=== PATIENT | male | born 1955 | race Caucasian/White ===

== ENCOUNTER 2020-09-16 23:19 | Inpatient (IN) | payer MEDICARE, OTHER ==
[2020-09-16] MEDS ORDERED: ACETAMINOPHEN IV (For NPO) 1,000 MG in EMPTY BAG 1 BAG IVPB STA (23:30)
[2020-09-16] MEDS ORDERED: AMPICILLIN-SULBACTAM 3 GM in SODIUM CHLORIDE 0.9% 100 ML IVPB STA (23:34)
[2020-09-16] MEDS ORDERED: SODIUM CHLORIDE 0.9% 1,000 ML IV STA ×2 (23:34)
[2020-09-16] MEDS ORDERED: NALOXONE 0.4 MG/ML 1 ML VIAL IV PRN (23:35)
[2020-09-16] MEDS ORDERED: MORPHINE SULFATE 4 MG/ML SYRINGE IV PRN (23:35)
[2020-09-16] MEDS ORDERED: ONDANSETRON 4 MG/2 ML VIAL IVP PRN (23:35)
--- NOTE | 2020-09-16 23:37 | ED ---
Recheck HPI - General Chief Complaint: Abdominal Pain Stated Complaint: Abd Pain Time Seen by Provider: 09/16/20 23:33 Source: EMS Mode of arrival: EMS Limitations: no limitations - Related Data Allergies Allergy/AdvReac Type Severity Reaction Status Date / Time No Known Allergies Allergy Verified 09/16/20 23:26 Review of Systems ROS Statement: Those systems with pertinent positive or pertinent negative responses have been documented in the HPI. ROS Other: All systems not noted in ROS Statement are negative. Past Medical History Past Medical History: Hypertension History of Any Multi-Drug Resistant Organisms: None Reported Past Surgical History: Joint Replacement, Prostate Surgery Past Psychological History: No Psychological Hx Reported Smoking Status: Never smoker Past Alcohol Use History: Occasional Past Drug Use History: None Reported General Exam Limitations: no limitations Course Vital Signs 09/16/20 23:23 Temperature 103 F H Pulse Rate 104 H Respiratory 20 Rate Blood Pressure 133/78 O2 Sat by Pulse 93 L Oximetry Disposition Clinical Impression: Abdominal pain, Acute appendicitis Disposition: ADMITTED IP TO THIS HOSP Condition: Fair Is patient prescribed a controlled substance at d/c from ED?: No Referrals: Nonstaff,Physician [Primary Care Provider] - 1-2 days
[2020-09-16] MEDS ORDERED: IBUPROFEN IV 800 MG in SODIUM CHLORIDE 0.9% 250 ML IV ONE (23:45)
[2020-09-17] MEDS ORDERED: AMPICILLIN-SULBACTAM 3 GM in SODIUM CHLORIDE 0.9% 100 ML IVPB SCH ×2
[2020-09-17] MEDS ORDERED: ACETAMINOPHEN IV (For NPO) 1,000 MG in EMPTY BAG 1 BAG IVPB SCH
[2020-09-17] MEDS: ACETAMINOPHEN IV (For NPO) 1,000 MG in EMPTY BAG 1 BAG IVPB SCH ×3 (06:36→23:52)
--- NOTE | 2020-09-17 07:28 | XR ---
EXAMINATION TYPE: XR chest 2V DATE OF EXAM: 09/17/2020 COMPARISON: NONE HISTORY: Shortness of breath TECHNIQUE: Frontal and lateral views of the chest are obtained. FINDINGS: Scattered senescent parenchymal changes noted. Hyperinflation compatible with COPD. No evidence for infiltrate. No evidence for atelectasis. Heart size is stable. Mediastinal structures are stable and grossly unremarkable. No evidence for hilar prominence. Degenerative changes dorsal spine. IMPRESSION: 1. No evidence for acute pulmonary disease.
[2020-09-17 08:21] LABS: Basophils % (A) 0 %; Eosinophils % (A) 0 %; HCT 39.8 % (39.0-53.0); HGB 14.7 gm/dL (13.0-17.5); Hyperchromasia Slight; Lymphocytes # (A) 0.7 k/uL (1.0-4.8); Lymphocytes % (A) 4 %; MCH 33.8 pg (25.0-35.0); MCV 91.3 fL (80.0-100.0); Mean Platelet Volume 7.4; Monocytes # (A) 0.9 k/uL (0-1.0); Monocytes % (A) 4 %; Neutrophils # (A) 18.8 k/uL (1.3-7.7); Neutrophils % (A) 91 %; Platelet Count 176 k/uL (150-450); RBC 4.36 m/uL (4.30-5.90); RDW 12.4 % (11.5-15.5); WBC 20.6 k/uL (3.8-10.6)
[2020-09-17] MEDS: PANTOPRAZOLE 40 MG/10 ML VIAL IV SCH (08:26)
[2020-09-17] MEDS: AMPICILLIN-SULBACTAM 3 GM in SODIUM CHLORIDE 0.9% 100 ML IVPB SCH ×2 (08:26→17:38)
--- NOTE | 2020-09-17 16:11 | P.GSHP ---
History of Present Illness H&P Date: 09/17/20 CHIEF COMPLAINT: Right lower quadrant abdominal pain HISTORY OF PRESENT ILLNESS: This is a 64-year-old male with a known history of hypertension and prostate surgery. Patient was a transfer from [facility]. Patient presented to the emergency room with complaints of right lower quadrant abdominal pain for the last 2 days. He also has been having nausea. Patient has had colonoscopy within the last 5 years. Denies any family history of colon cancer. He's been having normal stools with no blood present in the stools. Per patient he has had a recent stress test and was reported no rmal per patient. He denies any fever, chills or sweats. He had computed tomography scan findings of an acute appendicitis at outside facility. PAST MEDICAL HISTORY: See list. PAST SURGICAL HISTORY: See list. MEDICATIONS: See list. ALLERGIES: See list. SOCIAL HISTORY: No illicit drug use. REVIEW OF SYSTEMS: CONSTITUTIONAL: Denies fever or chills. HEENT: Denies blurred vision, vision changes, or eye pain. Denies hemoptysis ENDOCRINE: Denies heat or cold intolerance. CARDIOVASCULAR: Denies chest pain or pressure. RESPIRATORY: No shortness of breath. GASTROINTESTINAL: Denies abdominal pain. Denies nausea or vomiting. NEURO: Denies history of seizures. PSYCH: No depression or suicidal ideation HEMATOLOGIC: Denies bleeding disorders. LYMPHATIC: The patient denies any lumps and bumps around the neck. GENITOURINARY: Denies any blood in urine or increased urinary frequency. MUSCULOSKELETAL: Denies myalgias. Denies joint swelling. Denies decreased range of motion beyond patients baseline. SKIN: Denies pruitis. Denies rash. PHYSICAL EXAM: VITAL SIGNS: Reviewed GENERAL: Well-developed in no acute distress. HEENT: No sclera icterus. Extraocular movements grossly intact. Moist buccal mucosa. Head is atraumatic, normocephalic. Hears conversational speech. No nasal d rainage. NECK: Supple without lymphadenopathy. CHEST: Non-labored respirations and equal bilateral excursions. CARDIOVASCULAR: Regular rate with regular rhythm. Palpable 2+ radial pulses. ABDOMEN: Soft. Nondistended. Nontender MUSCULOSKELETAL: No clubbing or cyanosis. NEUROLOGIC: No focal or lateralizing signs. Cranial nerves II through XII grossly intact. PSYCH: Appropriate affect. Alert and oriented to person, place and time. SKIN: Well perfused. Good skin turgor. LABORATORY DATA: WBC 20.6 Hgb 14.7 platelets 176 IMAGING: ASSESSMENT: 1. Right lower quadrant abdominal pain 2. Acute appendicitis 3. Hypertension 4. History of prostate surgery PLAN: -Patient is scheduled for robotic appendectomy with Dr. Bonilla -Continue IV fluids -Continue IV antibiotics -Keep patient nothing by mouth Physician [employer] Supervisor note has been reviewed by physician. Signing provider agrees with the documented findings, assessment, and plan of care. Past Medical History Past Medical History: Hypertension History of Any Multi-Drug Resistant Organisms: None Reported Past Surgical History: Joint Replacement, Prostate Surgery Past Psychological History: No Psychological Hx Reported Smoking Status: Never smoker Past Alcohol Use History: Occasional Past Drug Use History: None Reported Medications and Allergies Home Medications Medication Instructions Recorded Confirmed Type Multivitamins, Thera [Multivitamin 1 tab PO DAILY 09/16/20 09/16/20 History (formulary)] hydroCHLOROthiazide 25 mg PO DAILY 09/16/20 09/16/20 History lisinopriL [Zestril] 20 mg PO DAILY 09/16/20 09/16/20 History Allergies Allergy/AdvReac Type Severity Reaction Status Date / Time No Known Allergies Allergy Verified 09/16/20 23:48 Surgical - Exam Vital Signs Temp Pulse Resp BP Pulse Ox 103 F H 104 H 20 133/78 93 L 09/16/20 23:23 09/16/20 23:23 09/16/20 23:23 09/16/20 23:23 09/16/20 23:23 Results - Labs 09/17/20 07:52 Abnormal Lab Results - Last 24 Hours (Table) 09/17/20 Range/Units 07:52 WBC 20.6 H (3.8-10.6) k/uL Neutrophils # 18.8 H (1.3-7.7) k/uL Lymphocytes # 0.7 L (1.0-4.8) k/uL
--- NOTE | 2020-09-17 16:53 | P.GSHP ---
History of Present Illness H&P Date: 09/17/20 CHIEF COMPLAINT: Right lower quadrant abdominal pain with appendicitis for 2 days. HISTORY OF PRESENT ILLNESS: The patient is a 64-year-old male transferred from outside facility [place] who presents with 2 day history of periumbilical with right lower quadrant abdominal pain that is crampy dull ache in nature. No reports of prior abdominal pain. He states the intensity of the pain is moderate. He presented with CT abdomen and pelvis consistent with dilated appendix suspicious for appendicitis hence general surgery admission. PAST MEDICAL HISTORY: See list and reviewed PAST SURGICAL HISTORY: See list and reviewed CURRENT MEDICATIONS: See list and reviewed ALLERGIES: See list and reviewed SOCIAL HISTORY: See list and reviewed FAMILY HISTORY: See list and reviewed REVIEW OF ORGAN SYSTEMS: CONSTITUTIONAL: No fever, no chills. Denies recent weight loss. HEENT: Denies any trouble with vision, hearing or nosebleeds. No difficulty swallowing. LYMPHATIC: The patient denies any lumps and bumps around the neck. ENDOCRINE: Denies any thyroid disorders. Denies any blood sugar glucose intolerance. RESPIRATORY: Denies shortness of breath including chronic cough. CARDIOVASCULAR: Has hypertensive heart disease. Previous stress test one year ago within normal limits. No palpitations. GASTROINTESTINAL: Denies regurgitation of bile at night as well as intermittent nausea. No blood in stools. GENITOURINARY: Denies any blood in urine or increased urinary frequency. MUSCULOSKELETAL: Denies current joint arthritis. NEUROLOGIC: Denies any numbness or tingling along the distal extremities. No seizure disorders or headaches. PSYCHIATRIC: Denies any depression or suicidal ideation. HEMATOLOGIC: Denies any abnormal bleeding or bruising. PHYSICAL EXAMINATION: GENERAL: A 64-year-old male in no acute distress. Pleasant. HEENT: No sclera icterus. Extraocular movements grossly intact. Moist buccal mucosa. Head is atraumatic, normocephalic. Hears conversational speech. No nasal drainage. NECK: Supple without lymphadenopathy. No JV distention. CHEST: Non-labored respirations and equal bilateral excursions. CARDIOVASCULAR: Regular rate and rhythm. Palpable 2+ radial pulses. ABDOMEN: Soft, tender at the right lower quadrant without guarding. MUSCULOSKELETAL: No clubbing, cyanosis or edema. NEUROLOGIC: No focal or lateralizing signs. PSYCH: Appropriate affect. Alert and oriented to person, place and time. SKIN: Well perfused. Good skin turgor. LABS: Reviewed. White blood cell count elevated over 20,000. STUDIES: CT of the abdomen and pelvis independently reviewed with findings consistent with appendicitis. ASSESSMENT: 1. Right lower quadrant pain with sepsis 2. Appendicitis 3. Leukocytosis. PLAN: 1. I have discussed benefits and risks of robotic appendectomy. 2. Bilateral SCDs. 3. Antibiotics intravenous to address moderate leukocytosis with underlying sepsis Thank you very much for allowing me to participate in the care of your patient. Past Medical History Past Medical History: Hypertension History of Any Multi-Drug Resistant Organisms: None Reported Past Surgical History: Joint Replacement, Prostate Surgery Past Psychological History: No Psychological Hx Reported Smoking Status: Never smoker Past Alcohol Use History: Occasional Past Drug Use History: None Reported Medications and Allergies Home Medications Medication Instructions Recorded Confirmed Type Multivitamins, Thera [Multivitamin 1 tab PO DAILY 09/16/20 09/16/20 History (formulary)] hydroCHLOROthiazide 25 mg PO DAILY 09/16/20 09/16/20 History lisinopriL [Zestril] 20 mg PO DAILY 09/16/20 09/16/20 History Allergies Allergy/AdvReac Type Severity Reaction Status Date / Time No Known Allergies Allergy Verified 09/16/20 23:48 Surgical - Exam Vital Signs Temp Pulse Resp BP Pulse Ox 103 F H 104 H 20 133/78 93 L 09/16/20 23:23 09/16/20 23:23 09/16/20 23:23 09/16/20 23:23 09/16/20 23:23 Results - Labs 09/17/20 07:52 Abnormal Lab Results - Last 24 Hours (Table) 09/17/20 Range/Units 07:52 WBC 20.6 H (3.8-10.6) k/uL Neutrophils # 18.8 H (1.3-7.7) k/uL Lymphocytes # 0.7 L (1.0-4.8) k/uL
[2020-09-17] MEDS ORDERED: MELOXICAM 7.5 MG TAB PO PRN (16:54)
[2020-09-17] MEDS ORDERED: TAMSULOSIN 0.4 MG CAP.ER.24H PO PRN (16:54)
[2020-09-17] MEDS ORDERED: HEPARIN SODIUM,PORCINE/PF 5,000 UNIT/0.5 ML SYRINGE SQ PRN (16:54)
[2020-09-17] MEDS ORDERED: ACETAMINOPHEN TAB 500 MG TAB PO PRN (16:54)
[2020-09-17] MEDS ORDERED: GABAPENTIN 300 MG CAP PO PRN (16:54)
[2020-09-17 17:39] LABS: ALT 17 U/L (4-49); AST 22 U/L (17-59); African American GFR (CKD) >90 (>60 ml/min/1.73 sqM); Albumin 3.4 g/dL (3.5-5.0); Alkaline Phosphatase 57 U/L (38-126); Anion Gap 8 mmol/L; Blood Urea Nitrogen 23 mg/dL (9-20); Calcium 8.6 mg/dL (8.4-10.2); Carbon Dioxide 21 mmol/L (22-30); Chloride 106 mmol/L (98-107); Globulin 3.3 g/dL; Glucose 140 mg/dL (74-99); Non-African American GFR(CKD) 78 (>60 ml/min/1.73 sqM); Potassium 3.9 mmol/L (3.5-5.1); Sodium 135 mmol/L (137-145); Total Bilirubin 1.8 mg/dL (0.2-1.3); Total Protein 6.7 g/dL (6.3-8.2)
[2020-09-17] MEDS ORDERED: IV FLUID CONTINUATION 1,000 ML IV ONE ×2 (17:47)
[2020-09-17] MEDS ORDERED: PROPOFOL 10 MG/ML 20 ML VIAL IV ONE (19:11)
[2020-09-17] MEDS ORDERED: fentaNYL (PF) 50 MCG/ML 2 ML AMP ONE (19:11)
[2020-09-17] MEDS ORDERED: ROCURONIUM 10 MG/ML (5 ML VIAL) IV ONE (19:11)
[2020-09-17] MEDS ORDERED: GLYCOPYRROLATE 0.2 MG/ML 2 ML VIAL ONE (19:11)
[2020-09-17] MEDS ORDERED: MIDAZOLAM 2 MG/2 ML VIAL ONE (19:11)
[2020-09-17] MEDS ORDERED: KETOROLAC 15 MG/ML 1 ML VIAL ONE (19:11)
[2020-09-17] MEDS ORDERED: SUCCINYLCHOLINE CHLORIDE 100 MG/5 ML SYR IV ONE (19:11)
[2020-09-17] MEDS ORDERED: KETAMINE 10 MG/ML 20 ML VIAL ONE (19:11)
[2020-09-17] MEDS ORDERED: NEOSTIGMINE 1 MG/ML 10 ML VIAL ONE (19:11)
[2020-09-17] MEDS ORDERED: LIDOCAINE 1% INJ 10MG/ML (20 ML MDV) ONE (19:11)
[2020-09-17] MEDS ORDERED: HYDROmorphone (PF) 1 MG/ML ONE (19:11)
[2020-09-17] MEDS ORDERED: PHENYLEPHRINE-0.9% NACL SYG 1,000 MCG/10 ML SYRINGE ONE (19:11)
[2020-09-17] MEDS ORDERED: LIDOCAINE 2%-EPI 1:100,000 20 ML VIAL SQ ONE (19:41)
[2020-09-17] MEDS ORDERED: LACTATED RINGERS 1,000 ML IV ONE (19:51)
--- NOTE | 2020-09-17 22:07 | P.OP ---
Date of Procedure: 09/17/20 Description of Procedure: SURGEON: BRANDAN KING MD Preoperative Diagnosis: 1. Acute appendicitis with sepsis 2. Right lower quadrant abdominal pain 3. Hypertensive heart disease 4. History of prostate cancer 5. Morbid obesity due to excess calories, BMI 38.7 Postoperative Diagnosis: 1. Acute retrocecal appendicitis with rupture and phlegmon, localized abscess and sepsis 2. Right lower quadrant abdominal pain 3. Hypertensive heart disease 4. History of prostate cancer 5. Morbid obesity due to excess calories, BMI 38.7 6. Severe peritoneal adhesions rectal quadrant periappendiceal abscess Procedure(s) Performed: 1. Robotic-assisted daVinci Xi laparoscopic lysis of adhesions over 1.5 hours 2. Robotic-assisted daVinci Xi laparoscopic appendectomy Anesthesia: GETA, local Estimated Blood Loss (ml): 20 Pathology: other (appendix), aerobic and anaerobic culture Condition: stable Disposition: floor Operative Findings: 1. Acute retrocecal rupture appendicitis at the base with dense phlegmon right lower quadrant extending into the retroperitoneum 2. Terminal ileum unremarkable 3. Intermittent cecal bascule with mobile cecum 4. Pelvic peritoneal adhesions from previous prostate surgery 5. Appendix removed in piecemeal due to dense phlegmon right lower quadrant/ret roperitoneum INDICATIONS: The patient is a 64-year-old male who presents with acute appendicitis. Benefits and risks, including infection, open surgery, and bleeding for additional surgery was discussed at length. Informed consent was obtained. All questions of the patient and family were answered. DESCRIPTION: The patient was transferred to the operating room and placed in supine position. The patient had previously voided. The abdomen was then prepped and draped in standard sterile fashion as Ioban was placed along the abdomen to minimize any contamination of skin floor. After a timeout protocol was performed, attention was then brought to the left upper quadrant whereby a 0 degree 5 mm laparoscopic trocar entry was performed. The abdominal cavity was entered and insufflated to 12 mmHg pressure, which was tolerated well. Diagnostic laparoscopy demonstrated no injury to bowel, viscera or mesentery. Feculent localized abscess was identified along the right lower quadrant at the cecum. Next a robotic 8-mm trocar was placed along the left lower quadrant, 10-cm lateral to the midline. A 12 mm port was placed along the left upper quadrant and another 8-mm port left lateral abdominal wall. Ports were placed 8 cm apart from each other including 15-20 cm away from the target anatomy of the right pelvis. The patient was then placed in Trendelenburg position, at least 14 do wn and right side up at least 7. The robotic da Erick XI system was primed and docked from the left side of the patient. Using atraumatic graspers and vessel sealer, the robotic system was docked and primed as described. Instruments were interchanged by the transition assistant including graspers, robotic stapler and vessel sealer. Next, attention was brought to identify the cecum. A systematic view within the abdominal cavity was started with the small bowel which was unremarkable. Intermittent cecal bascule was found with the cecum folded towards the right upper quadrant and detorsed. Serositis from ruptured appendicitis was identified with peritonitis. Previous pelvic adhesions from prostate surgery was identified obscuring view of the bilateral groins. The appendix was retrocecal coursing towards right upper quadrant behind the ascending colon with additional dissection required into the retroperitoneum. A dense inflammatory changes from phlegmon required over 1.5hrs extensive lysis of adhesions. Active stool was emanating from the base of a ruptured appendicitis. Additional dissection was required to safely free the appendix from the surrounding tissue. The appendix was removed in piecemeal Blue 45 mm robotic staple loads were fired along the base of the appendix. The staple line was hemostatic. Hemostasis was checked prior to undocking the robot. The abdomen was irrigated until clear, 500 mL normal saline. The robot was undocked. I re-scrubbed into the case. The specimen was removed from the abdominal cavity with an Endo Catch bag through the 12 mm trocar at the left upper quadrant. The fascial defect was less than 8 mm in size. All instruments and pneumoperitoneum were evacuated from the abdominal cavity. Local anesthetic was infiltrated to all wounds for postop analgesia. All incisions were also cleansed with diluted hydrogen peroxide. The incisions were closed with 4-0 Monocryl. The left upper quadrant trocar site was covered with OptiFoam without glue. Exofin glue was applied to the rest of the skin incisions. The patient had tolerated the procedure well. The patient was extubated successfully. The patient was transferred to the postanesthesia care unit in stable condition.
[2020-09-17] MEDS ORDERED: METOCLOPRAMIDE 5 MG/ML 2 ML VIAL IVP PRN (22:08)
[2020-09-17] MEDS ORDERED: SODIUM CHLORIDE 0.9% 1,000 ML IV ONE (22:41)
[2020-09-17] MEDS: SODIUM CHLORIDE 0.9% 1,000 ML IV ONE ×2 (22:42→23:26)
[2020-09-18] MEDS: KETOROLAC 15 MG/ML 1 ML VIAL IVP SCH ×4 (00:01→18:06)
[2020-09-18] MEDS: ACETAMINOPHEN TAB 325 MG TAB PO SCH ×4 (00:01→18:05)
[2020-09-18] MEDS: ONDANSETRON 4 MG/2 ML VIAL IVP SCH ×4 (00:01→18:06)
[2020-09-18] MEDS: PIPERACILLIN-TAZOBACTAM 3.375 GM in SODIUM CHLORIDE 0.9% 100 ML IVPB SCH ×4 (00:02→20:46)
[2020-09-18] MEDS: metroNIDAZOLE-NS PMX 500 MG in SALINE 1 100ML.BAG IVPB SCH ×4 (00:03→17:15)
[2020-09-18] MEDS ORDERED: ceFAZolin 3 GM in SODIUM CHLORIDE 0.9% 100 ML IVPB PRN (07:00)
[2020-09-18] MEDS: ENOXAPARIN 30 MG/0.3 ML SYRINGE SQ SCH (07:41)
[2020-09-18] MEDS: hydroCHLOROthiazide 25 MG TAB PO SCH (07:41)
[2020-09-18] MEDS: TAMSULOSIN 0.4 MG CAP.ER.24H PO SCH (07:41)
[2020-09-18] MEDS: lisinopriL 20 MG TAB PO SCH (07:41)
[2020-09-18] MEDS: PANTOPRAZOLE 40 MG/10 ML VIAL IV SCH (07:42)
[2020-09-18 10:00] LABS: African American GFR (CKD) 80.6 (60.0-200.0); Albumin 3.4 g/dL (3.80-4.90); Albumin/Globulin Ratio 1.42 (1.60-3.17); Anion Gap 7.6 mmol/L (4.00-12.00); BUN/Creat Ratio 19.09 Ratio (12.00-20.00); Calcium 7.7 mg/dL (8.7-10.3); Carbon Dioxide 24.4 mmol/L (21.6-31.8); Globulin 2.4 g/dL (1.6-3.3); Non-African American GFR(CKD) 69.6 (60.0-200.0); Potassium 4.4 mmol/L (3.5-5.5); Total Protein 5.8 g/dL (6.2-8.2)
[2020-09-18 11:11] LABS: Basophils % (A) 0 %; Eosinophils % (A) 0 %; HCT 38.9 % (39.0-53.0); HGB 13.6 gm/dL (13.0-17.5); Lymphocytes # (A) 0.4 k/uL (1.0-4.8); Lymphocytes % (A) 3 %; MCH 33.4 pg (25.0-35.0); MCHC 34.9 g/dL (31.0-37.0); MCV 95.6 fL (80.0-100.0); Mean Platelet Volume 8.9; Monocytes # (A) 0.4 k/uL (0-1.0); Monocytes % (A) 3 %; Neutrophils # (A) 13.5 k/uL (1.3-7.7); Neutrophils % (A) 94 %; Platelet Count 179 k/uL (150-450); RBC 4.07 m/uL (4.30-5.90); RDW 12.9 % (11.5-15.5); WBC 14.4 k/uL (3.8-10.6)
--- NOTE | 2020-09-18 21:25 | P.PN ---
Subjective Progress Note Date: 09/18/20 CHIEF COMPLAINT: Acute ruptured appendicitis with sepsis HISTORY OF PRESENT ILLNESS: The patient is a 64-year-old male status post ruptured appendicitis with sepsis. He is postoperative day 1. His pain has moderately improved since surgery. He is tolerating diet. He has voided. ROS: No reports of nausea and vomiting. No fevers or chills. No new chest pain. No productive sputum. PHYSICAL EXAM: VITAL SIGNS: Reviewed CONSTITUTIONAL: Well developed and in no acute distress. EYES: Conjuctivae without sclera icterus. Extraocular movements grossly intact. HEAD, EARS, NOSE, THROAT: Moist buccal mucosa. Head is atraumatic, normocephalic. Hears conversational speech. No nasal drainage. NECK: Supple. No thyroidomegaly. RESPIRATORY: Non-labored respirations and equal bilateral excursions. CARDIOVASCULAR: Palpable 2+ radial pulses. Regular rate. Regular rhythm. ABDOMEN: Incisions clean dry and intact. Soft. No peritonitis. Appropriate left upper quadrant tenderness. MUSCULOSKELETAL: No gross deformity of the lower extremities noted. No clubbing. No cyanosis. SKIN: Good skin turgor. Well perfused. NEUROLOGIC: Cranial nerves II through XII grossly intact. No focal or latera lizing signs. PSYCH: Appropriate affect. Alert and oriented to person, place and time. CLINICAL LABS: White blood cell down from over 20,000 to 14,000. ASSESSMENT: 1. Acute ruptured appendicitis with sepsis PLAN: 1. Continue IV antibiotics. 2. Advance diet as tolerated 3. Disposition pending normal WBC Objective - Vital Signs Vital signs: Vital Signs Temp 97.6 F 09/18/20 14:00 Pulse 68 09/18/20 14:00 Resp 16 09/18/20 14:00 BP 116/67 09/18/20 14:00 Pulse Ox 92 L 09/18/20 08:04 Intake & Output 09/18/20 09/18/20 09/19/20 06:59 18:59 06:59 Intake Total 2950 Output Total 20 1500 Balance 2930 -1500 Intake: IV 2950 Output: Urine 1500 Estimated Blood Loss 20 Other: # Voids 1 3 - Labs CBC & Chem 7: 09/18/20 05:22 09/18/20 05:22 Labs: Abnormal Lab Results - Last 24 Hours (Table) 09/18/20 09/18/20 Range/Units 05:22 05:22 WBC 14.4 H (3.8-10.6) k/uL RBC 4.07 L (4.30-5.90) m/uL Hct 38.9 L (39.0-53.0) % Neutrophils # 13.5 H (1.3-7.7) k/uL Lymphocytes # 0.4 L (1.0-4.8) k/uL Glucose 179 H (70-110) mg/dL Calcium 7.7 L (8.7-10.3) mg/dL Total Protein 5.8 L (6.2-8.2) g/dL Albumin 3.40 L (3.80-4.90) g/dL Albumin/Globulin Ratio 1.42 L (1.60-3.17) g/dL Microbiology - Last 24 Hours (Table) 09/17/20 21:46 Gram Stain - Preliminary Appendix Wound Culture - Preliminary Gram Neg Bacilli 09/17/20 21:46 Anaerobic Culture - Preliminary Appendix Assessment and Plan (1) Sepsis Current Visit: Yes Status: Acute Code(s): A41.9 - SEPSIS, UNSPECIFIED [facility] SNOMED Code(s): 02053155 (2) Ruptured appendicitis Current Visit: Yes Status: Acute Code(s): K35.32 - ACUTE APPENDICITIS WITH PERF AND LOC PERITONITIS, W/O ABSCS SNOMED Code(s): 16919561
[2020-09-19] MEDS: KETOROLAC 15 MG/ML 1 ML VIAL IVP SCH ×2 (00:09→06:10)
[2020-09-19] MEDS: ACETAMINOPHEN TAB 325 MG TAB PO SCH ×4 (00:10→17:05)
[2020-09-19] MEDS: ONDANSETRON 4 MG/2 ML VIAL IVP SCH ×4 (00:20→17:05)
[2020-09-19] MEDS: metroNIDAZOLE-NS PMX 500 MG in SALINE 1 100ML.BAG IVPB SCH ×4 (00:49→17:21)
[2020-09-19 08:02] LABS: Basophils % (A) 0 %; Eosinophils # (A) 0.1 k/uL (0-0.7); Eosinophils % (A) 1 %; HCT 34.2 % (39.0-53.0); HGB 12.1 gm/dL (13.0-17.5); Hyperchromasia Slight; Lymphocytes # (A) 0.8 k/uL (1.0-4.8); Lymphocytes % (A) 7 %; MCH 32.5 pg (25.0-35.0); MCHC 35.5 g/dL (31.0-37.0); MCV 91.6 fL (80.0-100.0); Mean Platelet Volume 7.6; Monocytes # (A) 0.5 k/uL (0-1.0); Monocytes % (A) 4 %; Neutrophils # (A) 9.8 k/uL (1.3-7.7); Neutrophils % (A) 88 %; Platelet Count 214 k/uL (150-450); RBC 3.74 m/uL (4.30-5.90); RDW 12.2 % (11.5-15.5); WBC 11.2 k/uL (3.8-10.6)
[2020-09-19] MEDS: PIPERACILLIN-TAZOBACTAM 3.375 GM in SODIUM CHLORIDE 0.9% 100 ML IVPB SCH ×2 (08:03→15:24)
[2020-09-19] MEDS: lisinopriL 20 MG TAB PO SCH (08:04)
[2020-09-19] MEDS: ENOXAPARIN 30 MG/0.3 ML SYRINGE SQ SCH (08:04)
[2020-09-19] MEDS: PANTOPRAZOLE 40 MG/10 ML VIAL IV SCH (08:04)
[2020-09-19] MEDS: TAMSULOSIN 0.4 MG CAP.ER.24H PO SCH (08:04)
[2020-09-19] MEDS: hydroCHLOROthiazide 25 MG TAB PO SCH (08:04)
[2020-09-19 08:17] LABS: ALT 10 U/L (4-49); AST 17 U/L (17-59); African American GFR (CKD) >90 (>60 ml/min/1.73 sqM); Albumin 2.7 g/dL (3.5-5.0); Alkaline Phosphatase 51 U/L (38-126); Anion Gap 5 mmol/L; Blood Urea Nitrogen 20 mg/dL (9-20); Calcium 7.7 mg/dL (8.4-10.2); Carbon Dioxide 23 mmol/L (22-30); Chloride 103 mmol/L (98-107); Globulin 2.8 g/dL; Glucose 111 mg/dL (74-99); Non-African American GFR(CKD) 78 (>60 ml/min/1.73 sqM); Potassium 3.4 mmol/L (3.5-5.1); Sodium 131 mmol/L (137-145); Total Bilirubin 0.7 mg/dL (0.2-1.3); Total Protein 5.5 g/dL (6.3-8.2)
[2020-09-19] MEDS: SODIUM CHLORIDE 0.9% 1,000 ML IV SCH ×2 (08:47→15:25)
--- NOTE | 2020-09-19 14:20 | P.PN ---
Progress Note - Text Progress Note Date: 09/19/20 Patient feels well. He has a mild leukocytosis. On exam vitals are stable. Abdomen soft. Patient will stay for 1 more day IV antibiotics. He'll be discharged home tomorrow.
[2020-09-20] MEDS: PIPERACILLIN-TAZOBACTAM 3.375 GM in SODIUM CHLORIDE 0.9% 100 ML IVPB SCH ×2 (00:23→07:54)
[2020-09-20] MEDS: metroNIDAZOLE-NS PMX 500 MG in SALINE 1 100ML.BAG IVPB SCH ×3 (00:24→11:06)
[2020-09-20] MEDS: ACETAMINOPHEN TAB 325 MG TAB PO SCH ×3 (00:37→11:07)
[2020-09-20] MEDS: SODIUM CHLORIDE 0.9% 1,000 ML IV SCH ×2 (00:37→07:54)
[2020-09-20] MEDS: ONDANSETRON 4 MG/2 ML VIAL IVP SCH ×3 (00:37→11:07)
[2020-09-20] MEDS: TAMSULOSIN 0.4 MG CAP.ER.24H PO SCH (07:54)
[2020-09-20] MEDS: lisinopriL 20 MG TAB PO SCH (07:54)
[2020-09-20] MEDS: hydroCHLOROthiazide 25 MG TAB PO SCH (07:54)
[2020-09-20] MEDS: PANTOPRAZOLE 40 MG/10 ML VIAL IV SCH (07:55)
[2020-09-20 07:57] VITALS: BP 167/90; PULSE 68; RESP 16; TEMP 97.8
[2020-09-20 09:13] LABS: Basophils # (A) 0.04 X 10*3/uL (0.00-0.10); Basophils % (A) 0.5 %; Eosinophils # (A) 0.31 X 10*3/uL (0.04-0.35); Eosinophils % (A) 4.1 %; HCT 36.3 % (39.6-50.0); HGB 12.7 g/dL (13.0-17.0); Lymphocytes # (A) 0.96 X 10*3/uL (0.90-5.00); Lymphocytes % (A) 12.9 %; MCH 32.2 pg (27.0-32.0); MCV 91.9 fL (80.0-97.0); Monocytes # (A) 0.69 X 10*3/uL (0.20-1.00); Monocytes % (A) 9.2 %; Neutrophils # (A) 5.45 X 10*3/uL (1.80-7.70); Platelet Count 237 X 10*3/uL (140-440); RBC 3.95 X 10*6/uL (4.40-5.60); WBC 7.47 X 10*3/uL (4.50-10.00)
--- NOTE | 2020-09-20 09:55 | P.PN ---
Progress Note - Text Progress Note Date: 09/20/20 Patient feels better. His white count is normal. On exam her vital signs are stable. Abdomen soft. Status post laparoscopic appendectomy. Patient will be discharged home today. p
[2020-09-20 10:23] LABS: African American GFR (CKD) 90.5 (60.0-200.0); Calcium 8.4 mg/dL (8.7-10.3); Non-African American GFR(CKD) 78.1 (60.0-200.0); Potassium 3.7 mmol/L (3.5-5.5)
[2020-09-20 10:43] LABS: Anion Gap 5.5 mmol/L (4.00-12.00); Carbon Dioxide 25.5 mmol/L (21.6-31.8)
--- NOTE | 2020-09-20 15:13 | P.DS ---
Providers Date of admission: 09/17/20 00:01 Expected date of discharge: 09/20/20 Attending physician: Libby Bonilla Primary care physician: Physician Nonstaff - Discharge Diagnosis(es) (1) Sepsis Status: Acute (2) Ruptured appendicitis Status: Acute Hospital Course: Postoperative Diagnosis: 1. Acute retrocecal appendicitis with rupture and phlegmon, localized abscess and sepsis 2. Right lower quadrant abdominal pain 3. Hypertensive heart disease 4. History of prostate cancer 5. Morbid obesity due to excess calories, BMI 38.7 6. Severe peritoneal adhesions rectal quadrant periappendiceal abscess COURSE: The patient is a 64-year-old male who presented with acute appendicitis including sepsis. He had robotic appendectomy. He was on antibiotics until his WBC was normal. He was tolerating diet, and pain was controlled prior to discharge. Procedures: Procedure(s) Performed: 1. Robotic-assisted daVinci Xi laparoscopic lysis of adhesions over 1.5 hours 2. Robotic-assisted daVinci Xi laparoscopic appendectomy Anesthesia: GETA, local Estimated Blood Loss (ml): 20 Pathology: other (appendix), aerobic and anaerobic culture Condition: stable Disposition: floor Operative Findings: 1. Acute retrocecal rupture appendicitis at the base with dense phlegmon right lower quadrant extending into the retroperitoneum 2. Terminal ileum unremarkable 3. Intermittent cecal bascule with mobile cecum 4. Pelvic peritoneal adhesions from previous prostate surgery 5. Appendix removed in piecemeal due to dense phlegmon right lower quadrant/retroperitoneum Patient Condition at Discharge: Good Plan - Discharge Summary Discharge Rx Participant: No New Discharge Prescriptions: New Acetaminophen Tab [Tylenol Tab] 1,000 mg PO Q6HR PRN #30 tablet PRN Reason: Pain Ibuprofen [Motrin] 600 mg PO Q8HR PRN #30 tab PRN Reason: Pain Amoxic-Pot Clav 875-125Mg [Augmentin 875-125] 1 each PO Q12HR #10 tab Amoxic-Pot Clav 875-125Mg [Augmentin 875-125] 1 tab PO Q12HR 1 Days #2 tab Continue lisinopriL [Zestril] 20 mg PO DAILY hydroCHLOROthiazide 25 mg PO DAILY Multivitamins, Thera [Multivitamin (formulary)] 1 tab PO DAILY Discharge Medication List Multivitamins, Thera [Multivitamin (formulary)] 1 tab PO DAILY 09/16/20 [History] hydroCHLOROthiazide 25 mg PO DAILY 09/16/20 [History] lisinopriL [Zestril] 20 mg PO DAILY 09/16/20 [History] Acetaminophen Tab [Tylenol Tab] 1,000 mg PO Q6HR PRN #30 tablet 09/19/20 [Rx] Amoxic-Pot Clav 875-125Mg [Augmentin 875-125] 1 each PO Q12HR #10 tab 09/19/20 [Rx] Ibuprofen [Motrin] 600 mg PO Q8HR PRN #30 tab 09/19/20 [Rx] Amoxic-Pot Clav 875-125Mg [Augmentin 875-125] 1 tab PO Q12HR 1 Days #2 tab 09/20/20 [Rx] Follow up Appointment(s)/Referral(s): Libby Bonilla MD [STAFF PHYSICIAN] - 09/22/20 Nonstaff,Physician [Primary Care Provider] - 1-2 days Patient Instructions/Handouts: Appendicitis (GEN), Sepsis (GEN), Peritonitis (ED), Laparoscopic Appendectomy (DC) Activity/Diet/Wound Care/Special Instructions: DO NOT REMOVE DRESSING No lifting over 10 pounds in 2 weeks until October 01October shower. No bath tub soaks for two weeks until October 01 Diet as tolerated. Use Tylenol and ibuprofen or Aleve scheduled for the next 24-48 hours for best pain relief. Use ice along incisions for today to prevent swelling. Discharge Disposition: HOME SELF-CARE
== END 2020-09-20 12:31 | disposition home or self-care (01) | DRG 853 ==
LOC: EC 23:19 → 5NMEDONC 09-17 00:01 → 6NMEDSUR 09-17 14:51
PROVIDERS: ADMIT Surgery Plastic and Reconstructive Surgery; ATTEND Surgery Plastic and Reconstructive Surgery
PROC: 0DTJ4ZZ Resection of Appendix, Percutaneous Endoscopic Approach (ICD-10-PCS; principal; 2020-09-17 11:30)
PROC: 8E0W4CZ Robotic Assisted Procedure of Trunk Region, Percutaneous Endoscopic Approach (ICD-10-PCS; principal; 2020-09-17 11:30)
DX: A41.9 Sepsis, unspecified organism (principal); K35.33 Acute appendicitis with perforation, localized peritonitis, and gangrene, with abscess; Q43.3 Congenital malformations of intestinal fixation; I11.9 Hypertensive heart disease without heart failure; E66.01 Morbid (severe) obesity due to excess calories; Z20.822 Contact with and (suspected) exposure to COVID-19; Z68.38 Body mass index [BMI] 38.0-38.9, adult; K66.0 Peritoneal adhesions (postprocedural) (postinfection); Z79.899 Other long term (current) drug therapy; Z96.60 Presence of unspecified orthopedic joint implant; Z85.46 Personal history of malignant neoplasm of prostate
CPT/HCPCS: 71046; 80048; 80053; 85025; 87070; 87075; 87077; 87186; 87205; 87635; 88304; 93005; 94660; 96365; 96366; 96367; 96375; 96376; 99285